=== PATIENT | male | born 1990 | race Caucasian/White ===

== ENCOUNTER 2019-01-14 14:29 | Inpatient (IN) | payer OTHER ==
[~2019-01-14] VITALS: Ht 177.8 cm; Wt 77.3 kg
[2019-01-14 14:37] VITALS: Ht 177.8 cm; Wt 77.3 kg
--- NOTE | 2019-01-14 15:30 | NUR ---
AWAKE ALERT ,STATED AT 2PM HAD A BOWEL MOVEMENT AND NOTICED BLOOD WITH STOOL.ENIES ABDOMINAL PAIN,DENIES DRUG OR ALCOHOL USE
[2019-01-14 16:04] LABS: BASOPHIL % 0.2 % (0-2); PLATELET COUNT 233 x10^3mcL (130-400); RED CELL DISTRIBUTION WIDTH 13.4 % (11.5-14.5)
[2019-01-14 16:09] LABS: CALCIUM 8.7 mg/dL (8.5-10.1); CARBON DIOXIDE 29.5 mmol/L (21-32); CHLORIDE SERUM 101 mmol/L (98-107); CREATININE SERUM 1.3 mg/dL (0.7-1.3); GFR1 > 60 mL/min; GLUCOSE SERUM 95 mg/dL (74-106); POTASSIUM SERUM 4.7 mmol/L (3.5-5.1); SODIUM SERUM 138 mmol/L (136-145)
[2019-01-14 16:14] LABS: ALBUMIN 3.9 g/dL (3.4-5.0); ALKALINE PHOSPHATASE 65 U/L (46-116); ALT/SGPT 42 U/L (16-63); AST/SGOT 32 U/L (15-37); TOTAL PROTEIN, SERUM 7.2 g/dL (6.4-8.2)
--- NOTE | 2019-01-14 16:31 | NUR ---
MEDICATED WITH PEPCID,FLUIDS IN POGRESS,SUPERVISOR WATERWORKS IN SB NO ECTOPY
--- NOTE | 2019-01-14 18:40 | NUR ---
RESTING IN BED, HAS BLOODY BOWEL MOVEMENT,
--- NOTE | 2019-01-14 20:06 | NUR ---
PATIENT SEEN IN NO APPARENT DISTRESS. DENIES ANY PAIN. PATIENT IS ADMITTED. REPORT GIVEN TO ASPEN. PATIENT WILL BE TRANSPORTED TO ROOM 237.
[2019-01-14 20:38] VITALS: BP 108/60
--- NOTE | 2019-01-14 20:50 | NUR ---
RECEIVED PT FROM ED [facility]IA [employer]. ORIENTED PT TO ROOM AND SURROUNDINGS. IV NOTED TO LFA PATENT AND INTACT. INSTRUCTED PT ON USE OF CALL LIGHT WHEN IN NEED OF ASSISTANCE. BED IN LOWEST POSITION. SIDE RAILS UP X2. WILL CONTINUE TO MONITOR.
--- NOTE | 2019-01-15 00:41 | NUR ---
PT RESTING COMFORTABLY IN BED. NO ACUTE DISTRESS NOTED. NO SOB ON RA. DENIES ANY PAIN AT THIS TIME. IV PATENT AND INTACT RUNNING FLUIDS PER EMAR. REMINDED PT DIET STATUS AT NPO. PT ACKNOWLEDGES UNDERSTANDING. BED IN LOWEST POSITION. SIDE RAILS UP X2, CALL LIGHT WITHIN REACH. WILL CONTINUE TO MONITOR.
[2019-01-15 06:43] LABS: BASOPHIL % 0.6 % (0-2); PLATELET COUNT 215 x10^3mcL (130-400)
[2019-01-15 06:49] VITALS: BP 93/44
[2019-01-15 06:51] LABS: CALCIUM 8.5 mg/dL (8.5-10.1); CARBON DIOXIDE 27.9 mmol/L (21-32); CHLORIDE SERUM 104 mmol/L (98-107); CREATININE SERUM 1.3 mg/dL (0.7-1.3); GFR1 > 60 mL/min; GLUCOSE SERUM 112 mg/dL (74-106); POTASSIUM SERUM 3.6 mmol/L (3.5-5.1); SODIUM SERUM 140 mmol/L (136-145)
--- NOTE | 2019-01-15 07:05 | NUR ---
SEEN IN BED AAOX4. NO RESP DISTRESS NOTED. STATED HAS NO PAIN OR NAUSEA AT THIS TIME. STATED LAST EPISODE OF BLOODY STOOL WAS IN ER. KEPT NPO, PATIENT MADE AWARE. BRP. IVFD5 1/2NS AT 75ML/HR INFUSING WELL. CALL LIGHT NOTED WITHIN EASY REACH, SIDERAILS UP X2.
--- NOTE | 2019-01-15 08:56 | NUR ---
DENIES PAIN, SCHEDULED PROTONIX 40MG IVP GIVEN. IVF D5 1/2 NS INFUSING WELL.
[2019-01-15 08:57] VITALS: BP 99/35
--- NOTE | 2019-01-15 13:43 | NUR ---
STATED HAVING PAIN TO MID ABDOMEN 6/10 ON PAIN SCALE, DENIES NAUSEA, REFUSED PAIN MEDS OFFERRED. TOLERATED TO CLEAR LIQUID DIET. BOWEL PREP WILL START AT 15:00 TODAY. PATIENT AND FAMILY MADE AWARE.
--- NOTE | 2019-01-15 15:30 | NUR ---
SEEN BY DOCTOR GREG STRICKLAND. PATIENT AND FAMILY AT BEDSIDE MADE AWARE PLAN OF CARE.
--- NOTE | 2019-01-15 16:30 | NUR ---
BOWEL PREP STARTED. TOLERATING WELL.
--- NOTE | 2019-01-15 17:21 | NUR ---
SEEN BY DOCTOR AVILA AT BEDSIDE. PATIENT AND PATIENT'S MOTHER AT BEDSIDE MADE AWARE OF EGD/COLONOSCOPE TOMORROW MORINING. CONSENTS FOR ESOPHAGOGASTRODUODENOSCOPY/COLONOSCOPE AND MODERATE SEDATION SIGNED BY PATIENT WHO IS AWAKE, ALERT, ORIENTED X4.
[2019-01-15 17:41] VITALS: BP 118/72
--- NOTE | 2019-01-15 19:01 | NUR ---
HAD 2 BM BLOODY WATERY STOOL WITH PARTICLES AFTER FIRST SET OF BOWEL PREP GIVEN. BRP. WILL BE NPO AFTER MIDNIGHT FOR EGD/COLONOSCOPE TOMORROW AM. DENIES DIZZINESS, TOLERATING TO CRAMPING PAIN. IVF D5 1/2NS INFUSING WELL.
--- NOTE | 2019-01-15 19:30 | NUR ---
CARE ASSUMED FROM OUTGOING RN. PT CURRENTLY IN BATHROOM. FAMILY AT BEDSIDE. FIRST ROUND OF BOWEL PREP STARTED DURING DAY SHIFT. DENIES ANY PAIN/DISCOMFORT AT THIS TIME. INSTRUCTED PT TO NOTIFY US ONCE DONE TO INSPECT THE OUTPUT AND TO NOTIFY IF ANY DIZZINESS/WEAKNESS IS NOTED AFTER BOWEL MOVEMENT. WILL CONTINUE TO MONITOR.
--- NOTE | 2019-01-15 20:44 | NUR ---
SECOND BOWEL PREP. STARTED. PT TOLERATING WELL. INSTRUCTED PT TO NOTIFY US WHENEVER PT HAS A BOWEL MOVEMENT AND NOT TO DISCARD OR CONTAMINATE THE OUTPUT BEFORE WE ASSESS IT. INSTRUCTED PT TO NOTIFY US IF PT HAS ANY DIZZINESS/ WEAKNESS AFTER BOWEL MOVEMENT OR IF PT NEEDS ASSISTANCE TO BED. BED IN LOWEST POSITION. SIDE RAILS UP X2. CALL LIGHT WITHIN REACH. WILL CONTINUE TO MONITOR.
--- NOTE | 2019-01-16 01:06 | NUR ---
PT RESTING COMFORTABLE IN BED. NO ACUTE DISTRESS NOTED. EQUAL AND UNLABORED BREATHING ON RA. IV PATENT AND INTACT RUNNING FLUIDS PER EMAR. REMINDED PT ABOUT NPO STATUS IN PREPARATION FOR PROCEDURE. SECOND BOWEL PREP COMPLETE. PT LAST STOOL CLOSE TO CLEAR, MINUTE BLOOD NOTED. BED IN LOWEST POSITION. SIDE RAILS UP X2. CALL LIGHT WITHIN REACH. WILL CONTINUE TO MONITOR.
[2019-01-16 05:49] VITALS: BP 120/67
[2019-01-16 06:28] LABS: BASOPHIL % 0.7 % (0-2); PLATELET COUNT 209 x10^3mcL (130-400); RED CELL DISTRIBUTION WIDTH 13.4 % (11.5-14.5)
[2019-01-16 06:40] LABS: CALCIUM 8.3 mg/dL (8.5-10.1); CARBON DIOXIDE 29.9 mmol/L (21-32); CHLORIDE SERUM 107 mmol/L (98-107); CREATININE SERUM 1.2 mg/dL (0.7-1.3); GFR1 > 60 mL/min; GLUCOSE SERUM 128 mg/dL (74-106); SODIUM SERUM 142 mmol/L (136-145)
--- NOTE | 2019-01-16 07:15 | NUR ---
RECEIVED PATIENT FROM MACHINE BRUSH MAKER NURSE. PATIENT IS AWAKE, ALERT AND ORIENTED. BREATHING EVEN AND UNLABORED ON ROOM AIR. PATIENT DENIES SOB. BOWEL PREP COMPLETE LAST NIGHT. PER MACHINE BRUSH MAKER NURSE PATIENT IS CLEAR. SCHEDULES FOR EGD AND COLONOSCOPY WITH DR AVILA THIS AM. NPO SINCE 0000 ON 01/16. FALL PREC IN PLACE FOR GENERALIZED WEAKNESS. IVF INFUSING WELL ORDERED TO LAC, NO S/S ERYTHEMA AT SITE. CALL LIGHT WITHIN EASY REACH. WILL CONTIUE PLAN OF CARE.
--- NOTE | 2019-01-16 09:24 | NUR ---
PATIENT TAKEN DOWN TO ICU FOR EGD/COLONOSCOPY.
--- NOTE | 2019-01-16 09:30 | NUR ---
PT BROUGHT TO ICU FOR EGD AND COLONOSCOPY PROCEDURE WITH DR. AVILA. PT RECIEVED 1L NS BOLUS, TOTAL FENTANYL 100 MCG VIA IVP AND VERSED 7MG VIA IVP. PT TOLERATED PROCEDURES WELL. REPORT GIVEN TO PRIMARY RN TARYN.
--- NOTE | 2019-01-16 10:51 | NUR ---
RECEIVED REPORT FROM ELYSE GALEANO. PROCEDURE COMPLETE AND PATIENT TOLERATED WELL. WILL TRAVEL INSURANCE AGENT PATIENT FROM ICU AT THIS TIME.
--- NOTE | 2019-01-16 11:00 | NUR ---
PATIENT BACK FROM GI LAB AT THIS TIME. AWAKE, ALERT AND ORIENTED. DENIES PAIN AND DISCOMORT. VS STABLE. PATIENT EDUCATED ON HEMORRHOIDS. WILL CONTINUE TO MONITOR.
[2019-01-16 16:09] VITALS: BP 120/67
--- NOTE | 2019-01-16 16:45 | NUR ---
PATIENT DC'D HOME AT THIS TIME. AWAKE, ALERT AND ORIENTED. DENIES PAIN AND DISCOMFORT. VS STABLE. ALL DC INSTRUCTIONS PROVIDED TO PATIENT. ALL QUESTIONS ANSWERED AT TIME OF DC. IV REMOVED AND CATHETER TIP INTACT. ALL PERSONAL BELONGINGS GATHERED AND TAKEN HOME WITH PATIENT. PATIENT TAKEN DOWN TO LOBBY FOR DC AT THIS TIME.
== END 2019-01-16 16:45 | disposition home or self-care (01) | DRG 394 ==
LOC: ED 14:29 → MU 19:04
PROVIDERS: Internal Medicine Gastroenterology; Internal Medicine Pulmonary Disease; Specialist; ADMIT Internal Medicine
PROC: 0DJ08ZZ Inspection of Upper Intestinal Tract, Via Natural or Artificial Opening Endoscopic (ICD-10-PCS; principal; 2019-01-16 09:30)
PROC: 0DJD8ZZ Inspection of Lower Intestinal Tract, Via Natural or Artificial Opening Endoscopic (ICD-10-PCS; 2019-01-16 09:30)
DX: K64.8 Other hemorrhoids (principal); K62.5 Hemorrhage of anus and rectum; R55 Syncope and collapse
CPT/HCPCS: 43235; 45378; 90658; C9113; J2250; J3010; J3490; J7030; Q0092